=== PATIENT | female | born 2000 | race African-American/Black ===

== ENCOUNTER 2023-07-19 21:01 | Emergency (ER) | payer SELFPAY ==
[~2023-07-19] VITALS: Ht 182.9 cm; Wt 64.0 kg
[2023-07-19 21:08] VITALS: BP 134/89; PULSE 100; RESP 18; TEMP 98.7; O2SAT 98
[2023-07-20] MEDS ORDERED: TOPUD MT (01:40)
[2023-07-20] MEDS ORDERED: ACETAMINOPHEN 325MG TABLET PO ONE (01:45)
== END 2023-07-20 02:00 | disposition home or self-care (01) ==
LOC: ER 21:01
DX: K62.89 Other specified diseases of anus and rectum (principal)
CPT/HCPCS: 99281